=== PATIENT | female | born 1995 | race Caucasian/White ===

== ENCOUNTER 2024-12-12 06:55 | Emergency (ER) | payer OTHER, SELFPAY ==
[2024-12-12 06:59] VITALS: BP 144/81; PULSE 92; RESP 18; TEMP 36.6; O2SAT 100; BMI 35.7
--- OUTSIDE RECORDS SUMMARY | 2024-12-12 07:36 | XMS_ITS | Clinical Summary ---
Author Organization Formerly [facility] Address [address] [place] [address] Care Team Providers Care Patient Accounts Specialist Name Role Phone Unavailable Primary Care Provider Unavailabl e Social History Tobacco Use Types Packs/Day Years Used Date Smoking Tobacco: Never Assessed Comments Unknown Sex and Gender Information Value Date Recorded Sex Assigned at Not on file Legal Sex Female 9:44 AM EST Gender Identity Not on file Sexual Orientation Not on file Plan of Treatment Health Maintenance Due Date Last Done Comments Hepatitis C Virus Screening 1993 HIV Screening 2006 DTaP/Tdap/Td Vaccines (1 - Tdap) 2012 Hepatitis B Vaccines (1 of 3 - 19+ 3-dose series) 2012 COVID-19 Vaccine (2023-2 5 season) 2024 HPV Vaccines Aged Out No longer eligi ble based on patient's age to complete this topic Pneumococcal Vaccine: Pediat joey (0-5 Years) and At-Risk Patients (6 to 49 Years) Aged Out No longer eligible b ased on patient's age to complete this topic
--- NOTE | 2024-12-12 07:51 | ED_ITS ---
HPI - Neck Pain/Injury General Chief Complaint: Neck Pain/Injury Stated Complaint: Workman comp, neck injury Time Seen by Provider: 12/12/24 07:41 Source: patient Mode of arrival: ambulatory Limitations: no limitations History of Present Illness ED Provider: HPI Narrative: Was working in [employer], loading a tray, this is not heavy lifting, felt a snap in her neck and now is not able to move her neck, no numbness in upper extremities, no facial numbness, had an incident of crack in her back about a week ago. Related Data Allergies Allergy/AdvReac Type Severity Reaction Status Date / Time No Known Allergies Allergy Verified 12/12/24 07:02 Review of Systems Constitutional: Constitutional: Reports as per [facility] Social History Social History Advance Directives: No Advance Directives Information Provided: Yes Physical Exam Vital Signs: Vital Signs: Last Vital Signs Temp 98 F 12/12/24 06:59 Pulse 92 12/12/24 06:59 Resp 18 12/12/24 06:59 BP 144/81 H 12/12/24 06:59 Pulse Ox 100 12/12/24 06:59 O2 Del Method Room Air 12/12/24 06:59 BMI result Body Mass Index 35.7 Const: Other: Alert and oriented x4, no facial asymmetry Tender over the superior border of scapula and trapezius on the left, range of motion of the neck is decreased only to about 15 degrees flexion and 10-15 degrees for flexion and extension radial ulnar pulses +2 bilateral upper extremities, radial ulnar median nerve motor and sensory intact bilateral upper extremities Anterior neck structures unremarkable Medical Decision Making Medical Decision Making [facility] Narrative: Presenting with pretty much atraumatic torticollis, see my discharge instructions, there is no evidence for impingement of the nerves or vessels, she has good pulses, motor and sensory function intact, no fevers or chills suspect underlying infectious etiology. I did not feel that further imaging such as CT scan of the neck or x-rays of the neck are indicated. Differential Diagnosis Sprain, strain, spasm, fracture, arterial insufficiency, my cervical myelopathy, fracture Discharge Plan Discharge Clinical Impression: Strain of neck muscle Patient Disposition: Home, Self-Care Instructions: Cervical Strain (ED) Additional Instructions: Ibuprofen 400 mg every 6 hours around the clock for the next 2 days, this will help the most, Tylenol 975 mg for additional pain control, capsaicin ointment patches are [id number], a come into biggest strips, you can cut them into half strips and apply right over the area that hurts the most on your upper back, gentle [id number] exercises, ice technique we have discussed, anticipate that this will start improving over the next 3-4 days, could pillow support, mattress etc. numbness in your hands, inability to lift the hands come back to the ER Stand Alone Forms: Work/School Release Print Language: Wolof
[2024-12-12 08:07] VITALS: BP 102/65; PULSE 73; RESP 12; TEMP 36.7; O2SAT 98
[2024-12-12] MEDS: Lidocaine 4 % Patch ADH..PATCH 1 PATCH TRANSDERMA (08:29)
[2024-12-12] MEDS: Ketorolac Tromethamine 15 MG/ML VIAL IM (08:30)
[2024-12-12] MEDS: Acetaminophen 325 MG TABLET 975 MG PO (08:32)
[2024-12-12] MEDS: dexAMETHasone 2 MG TABLET 10 MG PO (08:32)
[2024-12-12 08:41] VITALS: BP 102/65; PULSE 73; RESP 12; TEMP 36.7; O2SAT 98
== END 2024-12-12 08:42 | disposition home or self-care (01) ==
PROVIDERS: Emergency Provider Emergency Medicine; PCP Family Medicine
DX: M54.2 Cervicalgia (principal); S16.1XXA Strain of muscle, fascia and tendon at neck level, initial encounter; X50.0XXA Overexertion from strenuous movement or load, initial encounter; Y93.9 Activity, unspecified; Y92.9 Unspecified place or not applicable; Y99.8 Other external cause status
CPT/HCPCS: 99284; J1885; J8540

== ENCOUNTER 2025-04-15 13:56 | Emergency (ER) | payer OTHER, SELFPAY ==
--- NOTE | ~2025-04-15 | CT_ITS ---
CLINICAL HISTORY: right sided eye pop , facial numbness, abnormal CTA HEAD, bolus contrast injection. 3D reconstructions and MPRs:: Comparison: Head CT Right Carotid Siphon: No stenosis Right Anterior Cerebral Artery: A1 and A2 segments are unremarkable. There is peripheral cortical enhancement. Right Middle Cerebral Artery: M1 and M2 segments are unremarkable. There is peripheral cortical enhancement. Right Posterior Cerebral Artery: P1 and P2 segments are unremarkable. There is peripheral enhancement Left Carotid Siphon: No stenosis Left Anterior Cerebral Artery: A1 and A2 segments are unremarkable. There is peripheral cortical enhancement. Left Middle Cerebral Artery: M1 and M2 segments are unremarkable. There is peripheral cortical enhancement. Left Posterior Cerebral Artery: P1 and P2 segments are unremarkable. There is peripheral cortical enhancement. Basilar Artery: Normal Venous drainage: Normal Impression: No stenosis No signs of aneurysm. No signs of arterial venous malformation. CTA Neck , Bolus contrast injection, 3D reconstructions and MPRs: Comparison: Head CT 04/15/2025 Findings: Soft tissues of the neck are unremarkable Superior aorta and branch vessels are unremarkable Right carotid: No stenosis Right vertebral: No stenosis Left Carotid: No stenosis Left Vertebral: No stenosis Impression: No stenosis No aneurysm or dissection This document has been electronically signed by: Ino Maloney MD on 04/15/2025 15:37:13
--- NOTE | ~2025-04-15 | CT_ITS ---
CLINICAL HISTORY: pop on right side of face, abnormal exam CT Head Without Contrast: Comparison: None Findings: Cortical sulci are symmetric Basal ganglia are unremarkable No shift in midline structures No intraparenchymal bleeding or abnormal extra axial blood fluid collections Normal pituitary size Clear paranasal sinuses Unremarkable orbital structures No depressed fractures Impression: Unremarkable CT of the head. No acute findings. ASPECTS score 10, NORMAL This document has been electronically signed by: Ino Maloney MD on 04/15/2025 15:07:23
[2025-04-15 14:18] VITALS: BP 151/67; PULSE 94; RESP 15; TEMP 36.9; O2SAT 96; BMI 40.7
--- NOTE | 2025-04-15 14:26 | ED_ITS ---
HPI - General Adult General Chief complaint: General Medical Stated complaint: allergic reaction Time Seen by Provider: 04/15/25 14:26 Source: patient Mode of arrival: ambulatory Limitations: no limitations History of Present Illness ED Provider: Ankita Bear PA-C HPI narrative: Patient is a 29 year old assigned female at with no reported medical history presenting to the emergency department today with right eye pain, right facial pain, and right eye swelling. Patient states that she had just put a pot of water on to boil when she turned her head and felt a pop in her right eye / face. Patient states that she began to have immediate pain and swelling in her right eye. Patient states that her vision is OK but was briefly cloudy when the incident happened. Patient states that she has no other complaints at this time. Related Data Previous Rx's ?Medication ?Instructions ?Recorded ketotifen fumarate 0.025 % (0.035 1 drp ophthalmic (ey e) BID 7 days 04/15/25 %) eye drops #5 mL prednisone 20 mg tablet 40 mg (2 x 20 mg) PO DAILY C OPD 04/15/25 exacerbation 5 days #10 tabs Allergies Allergy/AdvReac Type Severity Reaction Status Date / Time No Known Allergies Allergy Verified 04/15/25 14:23 Review of Systems 2 Constitutional: Constitutional: Reports as per HPI Eyes: Eyes: Reports as per HPI ENT: Reports as per HPI Cardiovascular: Cardiovascular: Reports as per HPI Respiratory: Respiratory: Reports as per HPI Gastrointestinal: Gastrointestinal: Reports as per HPI Genitourinary: Genitourinary: Reports as per HPI Musculoskeletal: Musculoskeletal: Reports as per HPI Integumentary/Breasts: Skin/Breast: Reports as per HPI Neurologic: Reports as per HPI Psychiatric: Psychiatric: Reports as per HPI Endocrine: Endocrine: Reports as per HPI Hematologic/Lymphatic: Hematologic/Lymphatic: Reports as per HPI Allergic/Immunologic: Allergic/Immunologic: Reports as per HPI [facility] Past Medical History Attestation statement: The following information was validated with the patient. Source: old records reviewed and nursing notes reviewed Social History Social History Advance Directives: No Advance Directives Information Provided: No Do you have a plan to hurt others: No Plan Physical Exam ED Vital Signs: Vital Signs - 24 hr 04/15/25 14:18 04/15/25 16:00 Temperature 98.4 F 98.4 F Pulse Rate 94 94 Respiratory Rate 15 15 Blood Pressure 151/67 H 151/67 H Pulse Oximetry 96 96 Oxygen Delivery Method Room Air Room Air BMI result Body Mass Index 40.7 Const General: cooperative, no acute distress, alert and awake Nutritional Appearance: well nourished Orientation/consciousness: patient oriented x3 HENMT Head: Yes normal to inspection and Yes atraumatic Ears: hearing grossly normal bilaterally and external ears normal General nose exam: Normal external nose present, no nasal discharge noted and no epistaxis Face and sinus: Yes normal facial exam, No abrasion and No laceration Mouth: Normal oral and palatal mucosa present, no drooling and no muffled voice Eyes Other: EOM: EOMs intact bilaterally Neck Neck: Yes normal visual inspection and Yes full ROM Resp Effort & Inspection: normal respiratory effort and able to speak in complete sentences Neuro General: patient oriented x3, moves all extremities and CN's II-XI intact bilaterally Cognition (Neuro): normal cognition Extrem General: Yes normal to inspection, Yes full ROM and Yes capillary refill normal Psych Appearance: grossly normal Mental Status: mental status grossly normal Affect: normal affect Attitude: cooperative Thought process: Normal thought process present Thought content: Normal thought content present Insight: Good insight present (Psych) Medications Administered Discontinued Medications Generic Name Dose Route Start Last Admin Trade Name Guzman PRN Reason Stop Dose Admin Iohexol 100 ml 04/15/25 15:07 04/15/25 15:07 Iohexol 350 Mg/Ml 100 Ml Infus..Btl IV 04/15/25 15:08 70 ml ONCE ONE Administration Medical Decision Making Medical Decision Making [facility] Narrative: Patient is a 29 year old assigned female at with no reported medical history presenting to the emergency department today with right eye pain, right facial pain, and right eye swelling. Patient's physical exam was as noted in the physical exam portion of this note. Patient's right eye was swollen with no proptosis. Patient's right eye swelling improved greatly while she was in the department. Patient's vision was normal. Patient's blood work was unremarkable. Patient's CT head and CTA of the head and neck showed no acute process. I consulted with my attending physician, Dr. Pinto, who examined the patient and stated he believed it to be a sudden onset conjunctivitis and recommended treating with ketotifen drops and PO prednisone. I explained my physical exam findings as well as all test results to the patient. I answered all questions asked by the patient. I stressed the importance of the patient taking her medication as directed (either prescribed or as the over the counter packaging recommends). I stressed the importance of the patient following up with her primary care provider and an budget specialist. I stressed the importance of the patient returning to the emergency department immediately if her symptoms were to worsen or if she were to develop any dizziness, shortness of breath, difficulty breathing, chest pain, blurry vision, loss of vision, nausea, vomiting, abdominal pain, fever, chills, back pain, or any other complaints. Patient verbalized agreement and understanding with this treatment plan and discharge. Differential Diagnosis Differential Diagnoses: The differential diagnosis associated with the presentation includes Right sided facial swelling Right eye swelling Conjunctivitis Occular muscle rupture Vertebral artery dissection Admission/Observation Consideration of admission/observation: Escalation of care including admission/observation considered Patient would have been admitted to the hospital had her work up had any findings where hospital admission was appropriate and her clinical presentation warranted hospital admission. Lab Data MDM Lab Attestation statement: I reviewed the patient's lab results. My interpretation of these studies and their corresponding values is that they are grossly normal. 04/15/25 14:40 04/15/25 14:40 Labs: Lab Results 04/15/25 Range/Units 14:40 WBC 9.0 (4.8-10.8) X10*3/uL RBC 4.69 (4.20-5.50) X10*6/uL Hgb 13.6 (12.0-16.0) g/dl Hct 40.9 (37.0-47.0) % MCV 87.2 (80.0-98.0) fL MCH 29.0 (27.0-33.0) pg MCHC 33.3 (31.0-35.0) g/dl RDW 12.6 (11.0-16.0) % Plt Count 281 (160-400) X10*3/uL MPV 9.9 (9.4-12.3) fL Immature Gran % (Auto) 0.3 (0.0-0.4) % Neut % (Auto) 65.0 (45-73) % Lymph % (Auto) 25.3 (20-40) % Owsley % (Auto) 7.2 (2-11) % Eos % (Auto) 1.6 (0-4) % Baso % (Auto) 0.6 (0-2) % Lymph # (Auto) 2.3 (1.2-4.9) X10*3/uL Owsley # (Auto) 0.7 (0.1-1.2) X10*3/uL Eos # (Auto) 0.1 (0.0-0.4) X10*3/uL Baso # (Auto) 0.1 (0.0-0.2) X10*3/uL Abs Immat Gran (auto) 0.03 (0.00-0.03) X10*3/uL Absolute Neuts (auto) 5.8 (2.0-8.3) x10*3/uL Absolute Nucleated RBC 0.000 (0.0-0.012) X10*3/uL Nucleated RBC % (auto) 0.0 (0.0-0.2) /100WBC PT 11.6 (10.9-12.4) SEC INR 1.0 (0.9-1.1) Sodium 138 (135-145) mmol/L Potassium 3.5 (3.3-5.1) mmol/L Chloride 107 (96-108) mmol/L Carbon Dioxide 23 (22-29) mmol/L Anion Gap 12 (12-20) BUN 12 (9-16) mg/dL Creatinine 0.70 (0.5-1.4) mg/dL Estim Creat Clear Calc 144.4 Estimated GFR > 60 Random Glucose 104 (60-115) mg/dL Calcium 9.3 (8.4-10.2) mg/dL Magnesium 2.0 (1.6-2.6) mg/dL Total Bilirubin 0.7 (0.0-1.0) mg/dL AST 24 (5-31) U/L ALT 17 (0-31) U/L Alkaline Phosphatase 55 (39-117) U/L Total Protein 7.0 (6.5-8.0) g/dL Albumin 4.6 (3.5-5.0) g/dL Beta HCG, Quant < 2 mIU/mL Independent Interpretation I performed an independent interpretation of an: CT Scan Interpretation: My interpretation is in agreement with the radiologist's impression of these imaging studies. L Report Number: [id number] Reason for Exam: right sided eye pop , facial numbness, abnormal CLINICAL HISTORY: right sided eye pop , facial numbness, abnormal CTA HEAD, bolus contrast injection. 3D reconstructions and MPRs:: Comparison: Head CT Right Carotid Siphon: No stenosis Right Anterior Cerebral Artery: A1 and A2 segments are unremarkable. There is peripheral cortical enhancement. Right Middle Cerebral Artery: M1 and M2 segments are unremarkable. There is peripheral cortical enhancement. Right Posterior Cerebral Artery: P1 and P2 segments are unremarkable. There is peripheral enhancement Left Carotid Siphon: No stenosis Left Anterior Cerebral Artery: A1 and A2 segments are unremarkable. There is peripheral cortical enhancement. Left Middle Cerebral Artery: M1 and M2 segments are unremarkable. There is peripheral cortical enhancement. Left Posterior Cerebral Artery: P1 and P2 segments are unremarkable. There is peripheral cortical enhancement. Basilar Artery: Normal Venous drainage: Normal Impression: No stenosis No signs of aneurysm. No signs of arterial venous malformation. CTA Neck , Bolus contrast injection, 3D reconstructions and MPRs: Comparison: Head CT 04/15/2025 Findings: Soft tissues of the neck are unremarkable Superior aorta and branch vessels are unremarkable Right carotid: No stenosis Right vertebral: No stenosis Left Carotid: No stenosis Left Vertebral: No stenosis Impression: No stenosis No aneurysm or dissection This document has been electronically signed by: Ino aMloney MD on 04/15/2025 15:37:13 Dictated By: Ino Maloney MD Signed By: Electronically signed by Ino Maloney MD 04/15/25 1537 Report Number: [id number] CLINICAL HISTORY: pop on right side of face, abnormal exam CT Head Without Contrast: Comparison: None Findings: Cortical sulci are symmetric Basal ganglia are unremarkable No shift in midline structures No intraparenchymal bleeding or abnormal extra axial blood fluid collections Normal pituitary size Clear paranasal sinuses Unremarkable orbital structures No depressed fractures Impression: Unremarkable CT of the head. No acute findings. ASPECTS score 10, NORMAL This document has been electronically signed by: Ino Maloney MD on 04/15/2025 15:07:23 Dictated By: Ino Maloney MD Signed By: Electronically signed by Ino Maloney MD 04/15/25 1508 Radiology Impression Discussion of test interpretation with radiology: I have reviewed the radiologist's reading. Discharge Plan Discharge Clinical Impression: Eye swelling Patient Disposition: Home, Self-Care Instructions: Eye Pain (ED), Atypical Facial Pain (ED) Additional Instructions: Your imaging and lab work today was reassuring. You should follow up with an budget specialist and use / take the medication I've prescribed you as directed. Sleep at a 45 degree angle to keep the swelling in your right eye down. You may apply ice to the swelling with a layer between the ice source and your skin. IF you are prescribed home medications and/or you are taking over the counter medications at home - it is very important you continue to do so as prescribed / directed unless told otherwise. Follow up with your primary care provider. Return to the emergency department immediately if your symptoms worsen or if you develop any numbness, tingling, dizziness, shortness of breath, difficulty breathing, chest pain, blurry vision, loss of vision, nausea, vomiting, abdominal pain, fever, chills, back pain, or any other complaints. Please see the information below about our Patient Portal. If you are not yet enrolled in the [facility] Patient Portal, you will receive an enrollment email invitation following your visit to any [facility] setting. You may also self-enroll in the Patient Portal by visiting our website: [email or web address] The following information is required to access the Patient Portal: - Your [facility] Medical Record Number - Your personal home email address (must match what is in your electronic medical record, Registration staff can assist with this) - Name - Date of Capabilities of the Patient Portal: - Message some providers - View upcoming appointments - Access your health summary, medical history, and visit history - View current conditions and allergies - View procedure and lab results - View your medications, including guidelines, side effects, and precautions - Complete pre-appointment questionnaires requested by your provider - Ready summary reports of your office visits and procedures To access the Patient Portal Mobile Angel, follow these directions: - Search [employer] in the Angel Store or Google Play Store - Download the Angel - Search for [facility] - Enter your login/password Prescriptions: New ketotifen fumarate 0.025 % (0.035 %) drops 1 drp ophthalmic (eye) BID 7 Days Qty: 5 0RF Rx Instructions: administer at least 8 hours apart prednisone 20 mg tablet 40 mg PO DAILY 5 Days Qty: 10 0RF Referrals: Batsheva Chaves MD [Primary Care Provider, Family Practice] Elver Moore [Physician, Ophthalmology] Referral Note: Call to establish and follow up with an budget specialist. Stand Alone Forms: Work/School Release Interventions: ED Discharge Assessment Last Done: 04/15/25 16:00 Discharge Date/Time: 04/15/25 16:00 Print Language: Grenadian
--- NOTE | 2025-04-15 14:43 | PC.NURSE ---
patient presents to the ED with right eye/facial swelling. patient states she was cooking in the kitchen (boiling water) patient states that she turned and felt a pop in her right eye. patient noticed her right face/eye swelling. patient states that she has had a sudden headache since 1300. patient states that she had neck pain yesterday. patient states that she feels weird, her face feels numb. patient right eye noted to be red/swollen, with pink film. patient pupil noted to be larger on the right then the left. #20 placed in the LAC patient placed in c collar.
[2025-04-15 14:46] LABS: MANUAL DIFF FLAG NO
[2025-04-15 14:50] LABS: Hematocrit 40.9 % (37.0-47.0); Hemoglobin 13.6 g/dl (12.0-16.0); Imm Gran Abs Auto 0.03 X10*3/uL (0.00-0.03); Imm Gran Pct Auto 0.3 % (0.0-0.4); Lymphocytes Absolute Auto 2.3 X10*3/uL (1.2-4.9); Mean Corpuscular HGB Conc 33.3 g/dl (31.0-35.0); Mean Corpuscular Hemoglobin 29.0 pg (27.0-33.0); Mean Corpuscular Volume 87.2 fL (80.0-98.0); NRBC Abs Auto 0.000 X10*3/uL (0.0-0.012); NRBC Pct Auto 0.0 /100WBC (0.0-0.2); Platelet Count 281 X10*3/uL (160-400); Red Blood Count 4.69 X10*6/uL (4.20-5.50); White Blood Count 9.0 X10*3/uL (4.8-10.8)
--- OUTSIDE RECORDS SUMMARY | 2025-04-15 14:50 | XMS_ITS | Clinical Summary ---
Author Organization Formerly [facility] Address [address] [place] [address] Care Team Providers Care Sales Lead Name Role Phone Unavailable Primary Care Provider [...] - 19+ 3-dose series) 2012 COVID-19 Vaccine ( - 2023-2 5 season) 2025 HPV Vaccines (No Doses Required) Completed Pneumococcal Vaccine: Pediat joey (0-5 Years) and At-Risk Patients (6 to 49 Years) Aged Out No longer eligible b ased on patient's age to complete this topic
[2025-04-15 15:07] LABS: INTERNATIONAL NORM RATIO 1.0 (0.9-1.1); Prothrombin Time 11.6 SEC (10.9-12.4)
[2025-04-15] MEDS: iohexoL 350 MG/ML 100 ML INFUS..BTL IV (15:07)
[2025-04-15 15:08] LABS: Alanine Aminotransferase 17 U/L (0-31); Albumin Level 4.6 g/dL (3.5-5.0); Alkaline Phosphatase 55 U/L (39-117); Anion Gap 12 (12-20); Aspartate Amino Transferase 24 U/L (5-31); Blood Urea Nitrogen 12 mg/dL (9-16); Calcium 9.3 mg/dL (8.4-10.2); Carbon Dioxide 23 mmol/L (22-29); Chloride 107 mmol/L (96-108); Creatinine Clr Calc Pharmacy 144.4; Estimated Glomerular Filt Rate > 60; Magnesium 2.0 mg/dL (1.6-2.6); Potassium 3.5 mmol/L (3.3-5.1); Sodium 138 mmol/L (135-145); Total Protein 7.0 g/dL (6.5-8.0)
[2025-04-15 16:00] VITALS: BP 151/67; PULSE 94; RESP 15; TEMP 36.9; O2SAT 96
== END 2025-04-15 16:00 | disposition home or self-care (01) ==
PROVIDERS: Physician Assistant Medical; Emergency Provider Emergency Medicine; PCP Family Medicine
DX: H01.9 Unspecified inflammation of eyelid (principal); R20.0 Anesthesia of skin; H57.11 Ocular pain, right eye; R93.0 Abnormal findings on diagnostic imaging of skull and head, not elsewhere classified; M54.2 Cervicalgia; Z51.81 Encounter for therapeutic drug level monitoring; Z79.899 Other long term (current) drug therapy
CPT/HCPCS: 36415; 70450; 70496; 70498; 80053; 83735; 84702; 85025; 85610; 99282; 99285; Q9967

== ENCOUNTER → 2025-04-15 14:36 | Outpatient (BNV) | payer OTHER, SELFPAY | PROVIDERS: Emergency Provider Emergency Medicine; PCP Family Medicine; Visit Provider Radiology Diagnostic Radiology | DX: H57.11 Ocular pain, right eye (principal) | CPT/HCPCS: 70450; 70496; 70498 ==